=== PATIENT | female | born 1950 | race Two or more races ===

== ENCOUNTER 2020-11-06 15:51 | Emergency (ER) | payer SELFPAY ==
[~2020-11-06] VITALS: Ht 152.4 cm; Wt 46.0 kg
[2020-11-06 23:19] VITALS: BP 130/62
[2020-11-08 09:08] LABS: ANTI-NUCLEAR ANTIBODIES DIRECT Negative (Negative); RF PROFILE < 10.0 IU/mL (0.0-13.9)
[2020-11-10 04:10] LABS: CCP IgG/IgA PROFILE 5 units (0-19)
== END 2020-11-06 23:21 | disposition home or self-care (01) ==
LOC: ER 15:51
DX: E11.39 Type 2 diabetes mellitus with other diabetic ophthalmic complication (principal); H20.9 Unspecified iridocyclitis
CPT/HCPCS: 36415; 85651; 86038; 86140; 86200; 86431; 99283